=== PATIENT | male | born 1960 | race African-American/Black ===

== ENCOUNTER 2018-10-19 15:22 | Emergency (ER) | payer MEDICARE ==
[~2018-10-19] VITALS: Ht 162.6 cm; Wt 61.2 kg
[~2018-10-19 15:22] MED LIST: METH4TAB PO
[2018-10-19 15:32] VITALS: BP 128/89
--- NOTE | 2018-10-19 15:35 | PHYS DOC ---
Past Medical History Past Medical History: Hypertension Past Surgical History: Other Additional Past Surgical Histo: hand, neck, shoulder, back Alcohol Use: None Drug Use: None Adult General Chief Complaint Chief Complaint: FACE PAIN HPI HPI Patient is a 58 year old male with history of hypertension who presents today complaining of cough and nasal congestion for 2 weeks, patient states he believes he has a sinus infection. Patient is a smoker. He states he has some body aches. Denies any fever. Review of Systems Review of Systems Constitutional: Denies fever or chills [] Eyes: Denies change in visual acuity, redness, or eye pain [] HENT: Reports nasal congestion denies sore throat [] Respiratory: reports cough denies shortness of breath [] Cardiovascular: No additional information not addressed in HPI [] GI: Denies abdominal pain, nausea, vomiting, bloody stools or diarrhea [] : Denies dysuria or hematuria [] Musculoskeletal: Denies back pain or joint pain [] Integument: Denies rash or skin lesions [] Neurologic: Denies headache, focal weakness or sensory changes [] All other systems were reviewed and found to be within normal limits, except as documented in this note. Allergies Allergies Allergies Coded Allergies Type Severity Reaction Last Updated Verified codeine Allergy Mild 10/15/14 Yes Physical Exam Physical Exam Constitutional: Well developed, well nourished, no acute distress, non-toxic appearance. [] HENT: Normocephalic, atraumatic, bilateral external ears normal, oropharynx moist, no oral exudates, sounds congested nasally. Bilateral nasal turbinates are boggy and erythematous. Mild maxillary sinus tenderness. Eyes: PERRLA, EOMI, conjunctiva normal, no discharge. [] Neck: Normal range of motion, no tenderness, supple, no stridor. [] Cardiovascular:Heart rate regular rhythm, no murmur [] Lungs & Thorax: Bilateral breath sounds clear to auscultation [] Abdomen: Bowel sounds normal, soft, no tenderness, no masses, no pulsatile masses. [] Skin: Warm, dry, no erythema, no rash. [] Back: No tenderness, no CVA tenderness. [] Extremities: No tenderness, no cyanosis, no clubbing, ROM intact, no edema. [] Neurologic: Alert and oriented X 3, normal motor function, normal sensory function, no focal deficits noted. [] Psychologic: Affect normal, judgement normal, mood normal. [] Current Patient Data Vital Signs Vital Signs Date Time Temp Pulse Resp B/P (MAP) Pulse Ox O2 Delivery O2 Flow Rate FiO2 10/19/18 15:32 99.3 117 20 128/89 (102) 96 Room Air 99.3 EKG EKG [] Radiology/Procedures Radiology/Procedures [] Course & Med Decision Making Course & Med Decision Making Pertinent Labs and Imaging studies reviewed. (See chart for details) This is a 58-year-old male patient with physical exam consistent of sinusitis. Symptoms are 2 weeks. Currently running a slight fever. Discharged with Augmentin. Encouraged to consider smoking cessation. Follow-up with the PCP next week. Instructed to return to the ED if symptoms worsen. Dragon Disclaimer Dragon Disclaimer This electronic medical record was generated, in whole or in part, using a voice recognition dictation system. Departure Departure Impression: Primary Impression: Acute sinusitis Additional Impression: Smoking addiction Disposition: HOME, SELF-CARE Condition: STABLE Referrals: NO PCP (PCP) follow up in 1 week with your doctor Patient Instructions: Sinusitis, Smoking Cessation, Tips For Success Additional Instructions: You have acute sinusitis. Complete your antibiotics. Consider smoking cessation. Take Tylenol Motrin for pain or fever. Follow-up with your doctor in 1-2 weeks. Scripts Benzonatate (TESSALON PERLE) 100 Mg Capsule 1 CAP PO TID, #30 CAP Prov: LIBRA NAVARRETE APRN 10/19/18 Prednisone (PREDNISONE) 50 Mg Tablet 1 TAB PO DAILY, #5 TAB Prov: LIBRA NAVARRETE APRN 10/19/18 Amoxicillin/Potassium Clav (AUGMENTIN 875-125 TABLET) 1 Each Tablet 1 TAB PO BID, #20 TAB Prov: LIBRA NAVARRETE APRN 10/19/18 Attending Signature Attending Signature I have reviewed the PA/[employer]'s note and plan of care. I was available for consultation as needed during the patient's visit in the emergency department. I agree with the clinical impression, plan, and disposition. Problem Qualifiers Primary Impression: Acute sinusitis Sinusitis location: maxillary Recurrence: not specified as recurrent Qualified Codes: J01.00 - Acute maxillary sinusitis, unspecified LIBRA NAVARRETE APRN Oct 19, 2018 15:35 AGAPITO LIANG DO Oct 20, 2018 13:55
[2018-10-19] MEDS ORDERED: AMOX1TAB61 PO (15:57)
[2018-10-19] MEDS ORDERED: PRED50TA PO (15:57)
[2018-10-19] MEDS ORDERED: BENZ100C PO (15:57)
== END 2018-10-19 16:24 | disposition home or self-care (01) ==
LOC: ER 15:22
DX: J01.00 Acute maxillary sinusitis, unspecified (principal); F17.200 Nicotine dependence, unspecified, uncomplicated; I10 Essential (primary) hypertension; Z98.890 Other specified postprocedural states; Z88.5 Allergy status to narcotic agent
CPT/HCPCS: 99283

== ENCOUNTER 2019-01-26 08:27 | Emergency (ER) | payer MEDICARE ==
[~2019-01-26] VITALS: Ht 180.3 cm; Wt 61.2 kg
[~2019-01-26 08:27] MED LIST changes: +AMOX1TAB61 PO; +BENZ100C PO; +PRED50TA PO
[2019-01-26 08:43] VITALS: BP 138/93
[2019-01-26] MEDS ORDERED: BENZ100C PO (08:48)
[2019-01-26] MEDS ORDERED: AZIT250T6 PO (08:48)
[2019-01-26] MEDS ORDERED: ALBU2.5V8 INH (08:48)
--- NOTE | 2019-01-26 08:49 | PHYS DOC ---
Past Medical History Past Medical History: No Pertinent History Past Surgical History: No Surgical History Additional Past Surgical Histo: hand, neck, shoulder, back Alcohol Use: Occasionally Drug Use: None Adult General Chief Complaint Chief Complaint: COUGH HPI HPI Patient is a 58 year old male who presents with 1.5 weeks of cough, nausea, sinus congestion. Review of Systems Review of Systems Constitutional: Denies fever or chills [] Eyes: Denies change in visual acuity, redness, or eye pain [] HENT: nasal congestion or denies sore throat [] Respiratory: cough or shortness of breath [] Cardiovascular: No additional information not addressed in HPI [] GI: Denies abdominal pain, nausea, vomiting, bloody stools or diarrhea [] : Denies dysuria or hematuria [] Musculoskeletal: Denies back pain or joint pain [] Integument: Denies rash or skin lesions [] Neurologic: Denies headache, focal weakness or sensory changes [] Endocrine: Denies polyuria or polydipsia [] All other systems were reviewed and found to be within normal limits, except as documented in this note. Allergies Allergies Allergies Coded Allergies Type Severity Reaction Last Updated Verified codeine Allergy Mild 01/26/19 Yes Physical Exam Physical Exam Constitutional: Well developed, well nourished, no acute distress, non-toxic appearance. [] HENT: Normocephalic, atraumatic, bilateral external ears normal, oropharynx moist, no oral exudates, nose normal. [] Eyes: PERRLA, EOMI, conjunctiva normal, no discharge. [] Neck: Normal range of motion, no tenderness, supple, no stridor. [] Cardiovascular:Heart rate regular rhythm, no murmur [] Lungs & Thorax: Bilateral upper breath sounds clear to auscultation, lower lobes diminished [] Abdomen: Bowel sounds normal, soft, no tenderness, no masses, no pulsatile masses. [] Skin: Warm, dry, no erythema, no rash. [] Back: No tenderness, no CVA tenderness. [] Extremities: No tenderness, no cyanosis, no clubbing, ROM intact, no edema. [] Neurologic: Alert and oriented X 3, normal motor function, normal sensory function, no focal deficits noted. [] Psychologic: Affect normal, judgement normal, mood normal. [] EKG EKG [] Radiology/Procedures Radiology/Procedures [] Course & Med Decision Making Course & Med Decision Making Patient is a 58 year old male who presents with 1.5 weeks of cough, nausea, sinus congestion. Patient states is not currently coughing up any mucus at times it makes him gag or vomit from cough. Patient states at times he has shortness of breath. Patient is Also a smoker. Alert and oriented. Speaks in full clear sentences. Lungs are clear to auscultation in upper lobes but diminished in lower lobes. Vital signs are within normal limits. Mucous membranes moist. Skin is pink warm and dry. Patient denies any past medical history denies taking any medications. Patient states his pain at this time is generalized or with cough and is at a 5 out of 10. Tympanics pearly white. Throat pink without swelling or exudates. Follow-up with primary care provider and take medications as prescribed. Patient should drink plenty of fluids and stop smoking. Dragon Disclaimer Dragon Disclaimer This electronic medical record was generated, in whole or in part, using a voice recognition dictation system. Departure Departure Impression: Primary Impression: Cough Disposition: HOME, SELF-CARE Condition: STABLE Referrals: NO PCP (PCP) Patient Instructions: Cough, Adult Additional Instructions: Follow-up with primary care provider and take medications as prescribed. Patient should drink plenty of fluids and stop smoking. Scripts Albuterol Sulfate (PROAIR HFA INHALER) 8.5 Gm Hfa.aer.ad 1 PUFF INH PRN Q6HRS PRN for SHORTNESS OF BREATH, #1 INHALER 0 Refills Prov: SYLVAIN VITALE APRN 01/26/19 Azithromycin (AZITHROMYCIN TABLET) 250 Mg Tablet 1 PKG PO UD, #6 TAB Prov: SYLVAIN VITALE APRN 01/26/19 Benzonatate (TESSALON PERLE) 100 Mg Capsule 1 CAP PO TID, #30 CAP Prov: SYLVAIN VITALE APRN 01/26/19 SYLVAIN VITALE APRN Jan 26, 2019 08:48
== END 2019-01-26 08:57 | disposition home or self-care (01) ==
LOC: ER 08:27
DX: R05 Cough (principal); R09.81 Nasal congestion; R11.0 Nausea; Z88.5 Allergy status to narcotic agent
CPT/HCPCS: 99283

== ENCOUNTER 2019-02-03 19:59 | Emergency (ER) | payer MEDICARE ==
[~2019-02-03 19:59] MED LIST changes: +ALBU2.5V8 INH; +AZIT250T6 PO
== END 2019-02-03 20:23 | disposition left against medical advice (07) ==
LOC: ER 19:59
DX: Z03.89 Encounter for observation for other suspected diseases and conditions ruled out (principal); Z53.21 Procedure and treatment not carried out due to patient leaving prior to being seen by health care provider

== ENCOUNTER 2019-07-20 09:08 | Emergency (ER) | payer MEDICARE ==
[~2019-07-20] VITALS: Ht 180.3 cm; Wt 63.5 kg
[2019-07-20 09:18] VITALS: BP 162/88
[2019-07-20] MEDS: IBUPROFEN 200 MG TABLET. PO ONE (10:14)
--- NOTE | 2019-07-20 10:16 | PHYS DOC ---
Past Medical History Past Medical History: Hypertension Past Surgical History: Other Additional Past Surgical Histo: hand, neck, shoulder, back Alcohol Use: Occasionally Drug Use: None Adult General Chief Complaint Chief Complaint: LOWEREXTREMITY INJURY HPI HPI Patient is a 59 year old Male who presents with 3 weeks ago states he hit his right lateral thigh on a table. Patient states since then he has had left lateral thigh pain and swelling with sharp and throbbing pain that radiates to the hip and down to the knee. Patient rates his pain a 5 out of 10. Patient is ambulatory but seems to be limping. Patient states when he is trying to sleep at night the leg started to drop. Review of Systems Review of Systems Constitutional: Denies fever or chills [] Musculoskeletal: Right hip, right thigh, right knee. Denies back pain or joint pain [] Integument: Denies rash or skin lesions [] Neurologic: Denies headache, focal weakness or sensory changes [] All other systems were reviewed and found to be within normal limits, except as documented in this note. Current Medications Current Medications Current Medications Medications (Trade) Dose Ordered Sig/Zaira Start Time Stop Time Status Last Admin Dose Admin Ibuprofen (Motrin) 600 mg 1X ONCE 07/20/19 10:00 07/20/19 10:01 DC 07/20/19 10:14 600 MG Allergies Allergies Allergies Coded Allergies Type Severity Reaction Last Updated Verified codeine Allergy Mild 01/26/19 Yes Physical Exam Physical Exam Constitutional: Well developed, well nourished, no acute distress, non-toxic appearance. [] Skin: Warm, dry, no erythema, no rash. [] Extremities: Right lateral tenderness, no cyanosis, no clubbing, ROM intact, Right lateral thigh 1-2+ edema. [] Neurologic: Alert and oriented X 3, normal motor function, normal sensory function, no focal deficits noted. [] Psychologic: Affect normal, judgement normal, mood normal. [] Current Patient Data Vital Signs Vital Signs Date Time Temp Pulse Resp B/P (MAP) Pulse Ox O2 Delivery O2 Flow Rate FiO2 07/20/19 09:18 99.1 75 20 162/88 (112) 98 Room Air 99.1 EKG EKG [] Radiology/Procedures Radiology/Procedures [] Impressions: [facility] [address] [place], [place] [id number] IMAGING REPORT Signed PATIENT: SIMONE SILVERIO EACCOUNT: [id number] : 1960 LOCATION: ER AGE: 59 SEX: M EXAM STATUS: REG ER ORD. PHYSICIAN: SYLVAIN VITALE APRN REASON: PAIN, INJURY, left knee pain PROCEDURE: KNEE LEFT 4V Indications: Injury and pain. AP view of the pelvis and two-view study of the left hip: No diastases of the symphysis pubis or either SI joint is seen. No acute fracture or dislocation or lytic process is evident. Symmetric moderate primary degenerative osteoarthritis of both hip joints is seen. No fracture of the proximal left femur is seen. 2 view study of the left femur: No acute fracture or dislocation or lytic process is seen. 4 view study left knee: No acute fracture or dislocation or lytic process is evident. The patella is normally aligned. No significant arthritic change is seen. No left knee joint effusion is seen. IMPRESSION: No acute fracture. Moderate primary degenerative osteoarthritis of both hip joints. Electronically signed by: Kimi Tillman MD (07/20/2019 10:43 AM) [facility] DICTATED and SIGNED BY: KIMI TILLMAN MD DATE: 07/20/19 1043 Course & Med Decision Making Course & Med Decision Making Patient is a 59 year old Male who presents with 3 weeks ago states he hit his right lateral thigh on a table. Patient states since then he has had left lateral thigh pain and swelling with sharp and throbbing pain that radiates to the hip and down to the knee. Patient rates his pain a 5 out of 10. Patient is a mbulatory but seems to be limping. Patient states when he is trying to sleep at night the leg started to drop. Patient does have 2+ swelling to the lateral thigh compared to the left thigh. No knee swelling or lower extremity swelling. No calf pain tenderness palpation patient denies any calf tenderness. Pedal pulses are present. Cap refill less than 3 seconds. Skin pink warm and dry. Can bend knee and hip with full range of motion noticed painful. When palpating the lateral right thigh states is tender. Patient states his only history is hypertension and he takes medicine for this. Patient denies any numbness or tingling, color description of the skin, extremity going cold. Xrays show IMPRESSION: No acute fracture. Moderate primary degenerative osteoarthritis of both hip joints. Patient likely has a contusion. Patient to take Ibuprofen for pain and follow up with primary care provider. Srinath Disclaimer Dragon Disclaimer This electronic medical record was generated, in whole or in part, using a voice recognition dictation system. Departure Departure Impression: Primary Impression: Leg pain Disposition: HOME, SELF-CARE Condition: STABLE Referrals: NO PCP (PCP) Patient Instructions: Arthritis, Nonspecific, Contusion Additional Instructions: Follow up with primary care provider. Try using a heating pad. Take medications as prescribed. Scripts Ibuprofen (IBUPROFEN) 600 Mg Tablet 600 MG PO PRN Q6HRS PRN for INFLAMMATION, #20 TAB Prov: SYLVAIN VITALE APRN 07/20/19 Problem Qualifiers Primary Impression: Leg pain Laterality: right Qualified Codes: M79.604 - Pain in right leg SYLVAIN VITALE APRN Jul 20, 2019 10:16
--- NOTE | 2019-07-20 10:46 | RAD ---
Indications: Injury and pain. AP view of the pelvis and two-view study of the left hip: No diastases of the symphysis pubis or either SI joint is seen. No acute fracture or dislocation or lytic process is evident. Symmetric moderate primary degenerative osteoarthritis of both hip joints is seen. No fracture of the proximal left femur is seen. 2 view study of the left femur: No acute fracture or dislocation or lytic process is seen. 4 view study left knee: No acute fracture or dislocation or lytic process is evident. The patella is normally aligned. No significant arthritic change is seen. No left knee joint effusion is seen. IMPRESSION: No acute fracture. Moderate primary degenerative osteoarthritis of both hip joints. Electronically signed by: Chase Tillman MD (07/20/2019 10:43 AM) [facility]
[2019-07-20] MEDS ORDERED: IBUP-1007 PO (11:07)
== END 2019-07-20 11:14 | disposition home or self-care (01) ==
LOC: ER 09:08
DX: M79.651 Pain in right thigh (principal); M25.551 Pain in right hip; M25.561 Pain in right knee; I10 Essential (primary) hypertension; Z88.5 Allergy status to narcotic agent
CPT/HCPCS: 73502; 73552; 73564; 99284

== ENCOUNTER 2019-08-25 18:38 | Emergency (ER) | payer MEDICARE ==
[~2019-08-25] VITALS: Ht 180.3 cm; Wt 63.5 kg
[~2019-08-25 18:38] MED LIST changes: +IBUP-1007 PO
[2019-08-25 18:57] VITALS: BP 174/95
--- NOTE | 2019-08-25 19:13 | PHYS DOC ---
Past Medical History Past Medical History: Hypertension (SYLVAIN VITALE APRN) Past Surgical History: Other Additional Past Surgical Histo: hand, neck, shoulder, back (SYLVAIN VITALE APRN) Alcohol Use: Occasionally Drug Use: None (SYLVAIN VITALE APRN) Attending Signature I have participated in the care of this patient and I have reviewed and agree with all pertinent clinical information above including history, exam, and recommendations. (PARMINDER QUEZADA MD) Adult General Chief Complaint Chief Complaint: SHOULDER INJURY HPI HPI Patient is a 59 year old male who presents with states 3 days ago was helping change some brakes on the vehicle was using his right arm and pulling using tools. Patient states he awoke the next day and extreme shoulder pain. Patient states the pain stays in the posterior, anterior, lateral shoulder and it's a stabbing pain. Patient rates his pain a 9 out of 10. (SYLVAIN VITALE APRN) Review of Systems Review of Systems Musculoskeletal: Denies back pain. Right shoulder joint pain [] All other systems were reviewed and found to be within normal limits, except as documented in this note. (SYLVAIN VITALE APRN) Current Medications Current Medications Current Medications Medications (Trade) Dose Ordered Sig/Zaira Start Time Stop Time Status Last Admin Dose Admin Acetaminophen/ Hydrocodone Bitart (Lortab 5/325) 1 tab 1X ONCE 08/25/19 19:45 08/25/19 19:46 DC 08/25/19 19:55 1 TAB Orphenadrine Citrate (Norflex) 60 mg 1X ONCE 08/25/19 19:45 08/25/19 19:46 DC 08/25/19 19:55 60 MG (PARMINDER QUEZADA MD) Allergies Allergies Allergies Coded Allergies Type Severity Reaction Last Updated Verified codeine Allergy Mild 01/26/19 Yes (PARMINDER QUEZADA MD) Physical Exam Physical Exam Constitutional: Well developed, well nourished, no acute distress, non-toxic appearance. [] Neck: Normal range of motion, no tenderness, supple, no stridor. [] Skin: Warm, dry, no erythema, no rash. [] Back: No tenderness, no CVA tenderness. [] Extremities: Posterior right shoulder tenderness, no cyanosis, no clubbing, shoulder ROM not intact, no edema. [] Neurologic: Alert and oriented X 3, normal motor function, normal sensory function, no focal deficits noted. [] Psychologic: Affect normal, judgement normal, mood normal. [] (SYLVAIN VITALE APRN) Current Patient Data Vital Signs Vital Signs Date Time Temp Pulse Resp B/P (MAP) Pulse Ox O2 Delivery O2 Flow Rate FiO2 08/25/19 19:55 16 99 Room Air 08/25/19 18:57 99.6 98 174/95 (121) 99.6 (PARMINDER QUEZADA MD) EKG EKG [] (SYLVAIN VITALE APRN) Radiology/Procedures Radiology/Procedures [] (SYLVAIN VITALE APRN) Impressions: [facility] [address] [place], [place] [id number] IMAGING REPORT Signed PATIENT: SIMONE SILVERIO EACCOUNT: [id number] : 1960 LOCATION: ER AGE: 59 SEX: M EXAM STATUS: REG ER ORD. PHYSICIAN: SYLVAIN VITALE APRN REASON: pain PROCEDURE: SHOULDER 2+V RIGHT Right shoulder AP and scapular x-rays 3 views HISTORY: Right shoulder pain. FINDINGS: No fracture. No dislocation. Calcific tendinitis at the footplate of the supraspinatus tendon. There is a osseous loose body at the axillary recess below the inferior glenoid. IMPRESSION: No acute osseous injury. Electronically signed by: Zain Diaz MD (08/25/2019 7:56 PM) [facility] DICTATED and SIGNED BY: ZAIN DIAZ MD DATE: 08/25/191955 (SYLVAIN VITALE APRN) Course & Med Decision Making Course & Med Decision Making Patient will not rotate the arm for me due to pain. I tried to rotate the arm to check for joint laxity and he fought against me seeing is too painful. There is tenderness to the posterior shoulder. There is no deformity seen or felt. Patient denies any numbness or tingling. Extremity is warm pink and dry. Radial pulses strong and present. No swelling to the extremity. Patient can move all of his fingers and bend at the elbow but cannot rotate at the shoulder. X-ray shows no acute findings. (SYLVAIN VITALE APRN) Dragon Disclaimer Dragon Disclaimer This electronic medical record was generated, in whole or in part, using a voice recognition dictation system. (SYLVAIN VITALE APRN) Departure Departure Impression: Primary Impression: Shoulder pain, right Disposition: 01 HOME, SELF-CARE Condition: STABLE Referrals: NO PCP (PCP) Patient Instructions: Shoulder Pain, Shoulder Sprain Additional Instructions: Follow up with primary care provider. Use ice or heating pad. Take medications as prescribed. Scripts Ibuprofen (IBUPROFEN) 600 Mg Tablet 600 MG PO PRN Q6HRS PRN for INFLAMMATION, #20 TAB Prov: SYLVAIN VITALE APRN 08/25/19 Orphenadrine Citrate (ORPHENADRINE CITRATE) 100 Mg Tablet.er 1 TAB PO BID, #20 TAB Prov: SYLVAIN VITALE APRN 08/25/19 Problem Qualifiers Primary Impression: Shoulder pain, right Chronicity: acute Qualified Codes: M25.511 - Pain in right shoulder SYLVAIN VITALE APRN Aug 25, 2019 19:13 PARMINDER QUEZADA MD Aug 26, 2019 18:49
[2019-08-25] MEDS ORDERED: ORPHENADRINE CITRATE 60 MG/2 ML VIAL. IM ONE (19:45)
[2019-08-25] MEDS ORDERED: HYDROcodone/APAP 5/325MG 1 TAB TABLET PO ONE (19:45)
--- NOTE | 2019-08-25 19:59 | RAD ---
Right shoulder AP and scapular x-rays 3 views HISTORY: Right shoulder pain. FINDINGS: No fracture. No dislocation. Calcific tendinitis at the footplate of the supraspinatus tendon. There is a osseous loose body at the axillary recess below the inferior glenoid. IMPRESSION: No acute osseous injury. Electronically signed by: Jack Diaz MD (08/25/2019 7:56 PM) [facility]
[2019-08-25] MEDS ORDERED: ORPH100T PO (20:03)
[2019-08-25] MEDS ORDERED: IBUP-1007 PO (20:03)
== END 2019-08-25 20:08 | disposition home or self-care (01) ==
LOC: ER 18:38
DX: M25.511 Pain in right shoulder (principal); I10 Essential (primary) hypertension; Z88.5 Allergy status to narcotic agent
CPT/HCPCS: 73030; 96372; 99284; J2360

== ENCOUNTER 2021-10-15 17:35 | Emergency (ER) | payer MEDICARE ==
[~2021-10-15] VITALS: Ht 180.3 cm; Wt 56.9 kg
[~2021-10-15 17:35] MED LIST changes: +ORPH100T PO
[2021-10-15 17:45] VITALS: BP 113/80
--- NOTE | 2021-10-15 18:19 | PHYS DOC ---
Past Medical History Past Medical History: Hypertension Past Surgical History: No Surgical History, Other Additional Past Surgical Histo: hand, neck, shoulder, back Smoking Status: Current Every Day Smoker Alcohol Use: None Drug Use: None General Adult EDM: Chief Complaint: SHORTNESS OF BREATH HPI: HPI: Patient is a 61-year-old male who presents to the emergency department for a 2- day history of shortness of breath and a nonproductive cough. Patient is also reporting midsternal chest wall pain with coughing. He states it feels sore. Patient denies fever, sick exposures, nausea, vomiting, abdominal pain. He is vaccinated for COVID-19. His vital signs are stable. Review of Systems: Review of Systems: Constitutional: See HPI Respiratory: See HPI Cardiovascular: See HPI GI: See HPI Heart Score: C/O Chest Pain: Yes HEART Score for Chest Pain: HEART Score for Chest Pain Response (Comments) Value History Slighlty/Non-Suspicious 0 ECG Normal 0 Age >45 - < 65 1 Risk Factors 1 or 2 Risk Factors 1 Troponin < Normal Limit 0 Total 2 Risk Factors: Risk Factors: DM, Current or recent (<one month) smoker, HTN, HLP, family history of CAD, obesity. Risk Scores: Score 0 - 3: 2.5% MACE over next 6 weeks - Discharge Home Score 4 - 6: 20.3% MACE over next 6 weeks - Admit for Clinical Observation Score 7 - 10: 72.7% MACE over next 6 weeks - Early Invasive Strategies Allergies: Allergies: Allergies Coded Allergies Type Severity Reaction Last Updated Verified codeine Allergy Mild 01/26/19 Yes Physical Exam: PE: Constitutional: Well developed, well nourished, no acute distress, non-toxic appearance. [] HENT: Normocephalic, atraumatic, bilateral external ears normal, oropharynx moist, no oral exudates, nose normal. [] Eyes: PERRL, EOMI, conjunctiva normal, no discharge. [] Neck: Normal range of motion, no stridor Cardiovascular:Heart rate regular rhythm, no murmur, chest pain is not reproducible [] Lungs & Thorax: Bilateral breath sounds clear to auscultation [] Abdomen: Bowel sounds normal, soft, no tenderness, no masses, no pulsatile masses. [] Skin: Warm, dry, no erythema, no rash. [] Back: Normal range of motion Extremities: No tenderness, no cyanosis, no clubbing, ROM intact, no edema. [] Neurologic: Alert and oriented X 3, normal motor function, normal sensory function, no focal deficits noted. [] Psychologic: Affect normal, judgement normal, mood normal. [] Current Patient Data: Vital Signs: Vital Signs Date Time Temp Pulse Resp B/P (MAP) Pulse Ox O2 Delivery O2 Flow Rate FiO2 10/15/21 17:45 98.1 95 18 113/80 (91) 99 Room Air 98.1 EKG: EKG: EKG performed by ER staff at 1823 shows sinus rhythm with a heart rate of 77, QTc of 4 5, no STEMI read by Dr. Trent at 1825. [] Radiology/Procedures: Radiology/Procedures: []PROCEDURE: PORTABLE CHEST 1V EXAMINATION: XR CHEST 1V CLINICAL HISTORY: Shortness of breath, cough EXAM DATE/TIME: 10/15/2021 6:56 PM COMPARISON: 09/19/2013 FINDINGS: Lines, Tubes, and Devices: None. Cardiomediastinal Silhouette: Normal heart size. Aortic atherosclerotic calcification. Lungs and Pleura: No evidence of focal airspace consolidation or pleural effusion. Pulmonary vasculature unremarkable. Bones and Soft Tissues: No acute osseous abnormality. IMPRESSION: No evidence of acute cardiopulmonary abnormality or significant interval change. Electronically signed by: Miguel Lowe DO (10/15/2021 6:59 PM) [facility] DICTATED and SIGNED BY: MIGUEL LOWE DO DATE: 10/15/21 [id number] 0 Course & Med Decision Making: Course & Med Decision Making Pertinent Labs and Imaging studies reviewed. (See chart for details) [] Patient presents to the emergency department for 2-day history of shortness of breath and a nonproductive cough. Patient is also reporting midsternal chest wall pain when he coughs. Work-up in the ER consisted of blood work, EKG and a chest x-ray. I offered influenza and COVID-19 testing the patient refused. Patient's blood work was unremarkable. He had a negative chest x-ray. His heart score is 2 and the chest pain that he is experiencing is worse with coughing and likely musculoskeletal in nature. Patient advised to follow-up with his primary care provider. He will be discharged home with an albuterol inhaler for shortness of breath or wheezing and Tessalon Perles for cough. I discussed with patient all findings and diagnostic testing as well as the need to follow-up with PCP for further evaluation and treatment or return to the ER if any new or worsening symptoms. Strict return precautions were also discussed at length. Patient voiced understanding and agreement with the plan. Patient is hemodynamically stable at the time of disposition. Dragon Disclaimer: Dragon Disclaimer: This electronic medical record was generated, in whole or in part, using a voice recognition dictation system. Departure Departure Impression: Primary Impression: Cough Additional Impression: Person under investigation for COVID-19 Disposition: HOME / SELF CARE / HOMELESS Condition: GOOD Referrals: NO PCP (PCP) Patient Instructions: Cough, Adult, Smoking Cessation, Tips For Success Additional Instructions: You are seen in the emergency department for shortness of breath and a cough. Your blood work was unremarkable. Your chest x-ray did not show any acute findings. You refused influenza and Covid testing while in the ER. You are being discharged home with an albuterol inhaler that you can use when you are feeling short of breath or wheezing. For your cough you are being discharged home with Tessalon Perles please use these as directed. Please follow-up with your primary care provider tomorrow regarding your ER visit. Please return to the emergency department if you develop worsening of your shortness of breath, chest pain, high fevers refractory to treatment, intractable nausea or vomiting, weakness or any new concerns. Scripts Benzonatate (BENZONATATE) 200 Mg Capsule 1 CAP PO PRN TID PRN for cough for 7 Days, #21 CAP 0 Refills Prov: TREE GREGG APRN 10/15/21 Albuterol Sulfate (Proair Hfa) 8.5 Gm Hfa.aer.ad 2 PUFF IH PRN Q4-6HRS PRN for wheezing for 21 Days, #1 INHALER 0 Refills Prov: TREE GREGG APRN 10/15/21 TREE GREGG APRN Oct 15, 2021 18:18
--- NOTE | 2021-10-15 19:02 | RAD ---
EXAMINATION: XR CHEST 1V CLINICAL HISTORY: Shortness of breath, cough EXAM DATE/TIME: 10/15/2021 6:56 PM COMPARISON: 09/19/2013 FINDINGS: Lines, Tubes, and Devices: None. Cardiomediastinal Silhouette: Normal heart size. Aortic atherosclerotic calcification. Lungs and Pleura: No evidence of focal airspace consolidation or pleural effusion. Pulmonary vasculat ure unremarkable. Bones and Soft Tissues: No acute osseous abnormality. IMPRESSION: No evidence of acute cardiopulmonary abnormality or significant interval change. Electronically signed by: Miguel He DO (10/15/2021 6:59 PM) [facility]
[2021-10-15 19:30] LABS: BASO # 0.1 x10^3/uL (0.0-0.2); BASO % 1 % (0-3); EOS # 0.1 x10^3/uL (0.0-0.7); EOS % 1 % (0-3); HEMATOCRIT 42.7 % (39.0-53.0); HEMOGLOBIN 14.1 g/dL (13.0-17.5); LYMPH # 1.8 x10^3/uL (1.0-4.8); LYMPH % 23 % (24-48); MEAN CORPUSCULAR HEMOGLOBIN 32 pg (25-35); MEAN CORPUSCULAR HGB CONC 33 g/dL (31-37); MEAN CORPUSCULAR VOLUME 96 fL (79-100); MONO # 0.5 x10^3/uL (0.0-1.1); MONO % 6 % (0-9); NEUT # 5.5 x10^3/uL (1.8-7.7); NEUT % 70 % (31-73); PLATELET COUNT 306 x10^3/uL (140-400); RED BLOOD COUNT 4.46 x10^6/uL (4.30-5.70); RED CELL DISTRIBUTION WIDTH 12.4 % (11.5-14.5)
[2021-10-15 19:39] LABS: CALCIUM 9.6 mg/dL (8.5-10.1); CREATININE 1.1 mg/dL (0.7-1.3); GFR 82.3; POTASSIUM 3.7 mmol/L (3.5-5.1)
[2021-10-15 19:45] LABS: ALBUMIN/GLOBULIN RATIO 1.2 (1.0-1.7); TOTAL BILIRUBIN 0.7 mg/dL (0.2-1.0); TOTAL PROTEIN 7.4 g/dL (6.4-8.2)
[2021-10-15] MEDS ORDERED: ALBU2.5V8 IH (20:09)
[2021-10-15] MEDS ORDERED: BENZ200C47 PO (20:09)
--- NOTE | 2021-10-15 22:36 | EKG ---
[facility] [address] [place] [address] Test Date: 2021-10-15 Test Time: 18:23:28 Pat Name: SIMONE SILVERIO Department: Room: Gender: Machine [employer]: : 1960 Requested By: TREE GREGG Order Number: [id number] Reading MD: Jamey Braun Measurements Intervals [place] Rate: 77 P: 90 [place]: 154 QRS: 51 QRSD: 78 T: 73 QT: 356 QTc: 405 Interpretive Statements SINUS RHYTHM Electronically Signed On 10-17-2021 12:44:00 APPLICATION INTERNSHIP by Jamey Braun
== END 2021-10-15 20:32 | disposition home or self-care (01) ==
LOC: ER 17:35
DX: R05.9 Cough, unspecified (principal); R06.02 Shortness of breath; R07.2 Precordial pain; I10 Essential (primary) hypertension; F17.200 Nicotine dependence, unspecified, uncomplicated; Z88.5 Allergy status to narcotic agent
CPT/HCPCS: 36415; 71045; 80053; 84484; 85025; 93005; 99283